=== PATIENT | female | born 1975 | race African-American/Black ===

== ENCOUNTER 2018-05-15 09:02 | Emergency (ER) | payer OTHER ==
[2018-05-15 09:14] VITALS: BMI 36.6
--- NOTE | 2018-05-15 09:58 | PDOC ---
History of Present Illness - General Chief Complaint: Chest Pain Stated Complaint: CHEST PAIN Time Seen by Provider: 05/15/18 09:23 History Source: Patient Exam Limitations: No Limitations - History of Present Illness Initial Comments: 05/15/18 09:41 43 yo F with a hx COPD presents to the emergency department with left chest pain that radiates to the left upper back ongoing for 3 days. Described as a throbbing pain, 10/10 severity, relieves with stretching and ibuprofen, lasts several minutes and terminates after drinking fluids. Of note, she said the quality changed yesterday as a tearing sensation in the middle of her chest. Denies traumatic inciting event and recent URI. Denies recent travels with prolonged sitting, hx of PE/DVT, use of hormones, recent surgeries, and recent immobilization. Per the patient, she has had intermittent SOB between chest pain episodes with a non productive cough. Denies the following: fevers, chills , nausea, vomiting, FND, abdominal pain, dysuria, hematuria, diarrhea, hematochezia, and leg pain/swelling. Shx: None Meds: albuterol, ibuprofen, iron Allergies: NKDA Social: 1/2 pack of tobacco. denies alcohol and substance abuse. 05/15/18 10:00 Past History - Past Medical History Allergies/Adverse Reactions: Allergies Allergy/AdvReac Type Severity Reaction Status Date / Time aspirin Allergy UNKNOWN Verified 05/15/18 09:09 Home Medications: Ambulatory Orders Albuterol Sulfate Inhaler - [Ventolin HFA Inhaler -] 2 inh PO Q4H PRN 04/03/13 Fluticasone Propionate [Flovent Diskus] 50 mcg IH DAILY 05/15/18 Anemia: Yes Asthma: No Cancer: No Cardiac Disorders: No CVA: No COPD: Yes (BRONCHITIS, BORDERLINE COPD) CHF: No Dementia: No Diabetes: No GI Disorders: No Disorders: No HTN: Yes Hypercholesterolemia: Yes Liver Disease: No Seizures: No Thyroid Disease: No - Surgical History Abdominal Surgery: No Appendectomy: No Cardiac Surgery: No Cholecystectomy: No Lung Surgery: No Neurologic Surgery: No Orthopedic Surgery: No - Immunization History Immunization Up to Date: Yes - Suicide/Smoking/Psychosocial Hx Smoking History: Current every day smoker Have you smoked in the past 12 months: Yes Number of Cigarettes Smoked Daily: 10 Information on smoking cessation initiated: No 'Breaking Loose' booklet given: 04/03/13 Hx Alcohol Use: No Drug/Substance Use Hx: No Substance Use Type: None Hx Substance Use Treatment: No Review of Systems - Review of Systems Able to Perform ROS?: Yes Is the patient limited Togolese proficient: No Constitutional: No: Chills, Diaphoresis, Fever, Weakness HEENTM: No: Blurred Vision, Recent change in vision, Ear Pain, Nose Pain, Throat Pain, Mouth Pain Respiratory: Yes: Shortness of Breath. No: Cough, Hemoptysis Cardiac (ROS): Yes: Chest Pain. No: Lightheadedness, Palpitations, Syncope, Chest Tightness ABD/GI: No: Constipated, Diarrhea, Nausea, Rectal Bleeding, Vomiting, Tarry Stools : No: Burning, Dysuria, Hematuria, Urgency Musculoskeletal: Yes: Back Pain. No: Joint Pain, Neck Pain Integumentary: No: Bruising, Erythema, Pruritus, Rash Neurological: No: Headache, Numbness, Tingling, Tremors, Ataxia, Dizziness Psychiatric: No: Change in Appetite Endocrine: No: Unexplained Weight Gain Hematologic/Lymphatic: No: Anemia *Physical Exam - Vital Signs Last Vital Signs Temp Pulse Resp BP Pulse Ox 98.4 F 117 H 17 114/74 99 05/15/18 09:09 05/15/18 09:09 05/15/18 09:09 05/15/18 09:09 05/15/18 09:09 - Physical Exam General Appearance: Yes: Nourished, Appropriately Dressed. No: Apparent Distress, Intoxicated HEENT: positive: EOMI, AURELIANO, Normal ENT Inspection, Normal Voice, Symmetrical, TMs Normal, Pharynx Normal, Hearing Grossly Normal. negative: Pale Conjunctivae , Scleral Icterus (R), Scleral Icterus (L), Muffled/Hoarse voice, Pharyngeal Erythema, Tonsillar Exudate, Tonsillar Erythema, Nasal Congestion, Rhinorrhea, Excessive drooling Neck: positive: Trachea midline, Supple. negative: Tender, Lymphadenopathy (R) , Lymphadenopathy (L), Tender lateral, Tender midline Respiratory/Chest: positive: Lungs Clear, Normal Breath Sounds. negative: Chest Tender, Respiratory Distress, Accessory Muscle Use, Crackles, Rales, Wheezing ( ) Cardiovascular: positive: Regular Rhythm, Regular Rate, S1, S2. negative: Systolic Murmur Gastrointestinal/Abdominal: positive: Normal Bowel Sounds, Flat, Soft. negative : Tender, Rebound, Tenderness Lymphatic: negative: Adenopathy Musculoskeletal: positive: Normal Inspection, Muscle Spasm (positive paravetebral tenderness with palpation on the left side. positive rhomboid tenderness left side. no midlien tenderness. ). negative: CVA Tenderness, Decreased Range of Motion Extremity: positive: Normal Capillary Refill, Normal Inspection, Normal Range of Motion. negative: Tender, Swelling, Calf Tenderness Integumentary: positive: Normal Color, Dry, Warm. negative: Rash, Swelling Neurologic: positive: tyre fitter II-XII NML intact, Fully Oriented, Alert, Normal Mood/ Affect, Normal Response, Motor Strength 5/5. negative: EOM Palsy, Facial Droop , Sensory Deficit Moderate Sedation - Procedure Monitoring Vital Signs: Procedure Monitoring Vital Signs Temperature 98.4 F 05/15/18 09:09 Pulse Rate 117 H 05/15/18 09:09 Respiratory Rate 17 05/15/18 09:09 Blood Pressure 114/74 05/15/18 09:09 O2 Sat by Pulse Oximetry (%) 99 05/15/18 09:09 Heart Score/ECG Review - ECG Intrepretation Comment:: ventricular rate 111 bpm, ME is 154 ms, QRS is 76 ms, QTc is 470 ms. Sinus tachycardia with PVC. No St ELEVATIONS OR DEPRESSIONS ED Treatment Course - LABORATORY CBC & Chemistry Diagram: 05/15/18 10:22 05/15/18 10:22 Medical Decision Making - Medical Decision Making 43 yo F with a hx COPD presents to the emergency department with left chest pain that radiates to the left upper back ongoing for 3 days. Initial vitals: Initial Vital Signs Temp Pulse Resp BP Pulse Ox 98.4 F 117 H 17 114/74 99 05/15/18 09:09 05/15/18 09:09 05/15/18 09:09 05/15/18 09:09 05/15/18 09:09 Work up: presents with atypical chest pain. ddx includes ACS, pericarditis vs pericardial effusion, PNA, pleuritis, vs PE vs muscle strain vs URI Laboratory Tests 05/15/18 05/15/18 05/15/18 10:22 10:22 10:22 WBC 4.7 RBC 4.67 Hgb 12.3 Hct 37.6 MCV 80.5 MCH 26.3 MCHC 32.7 RDW 17.5 H Plt Count 124 L MPV 10.1 D Absolute Neuts (auto) 2.0 Neutrophils % 43.3 Lymphocytes % 43.5 H Monocytes % 10.7 H Eosinophils % 1.7 Basophils % 0.8 Nucleated RBC % 0 D-Dimer 313 Sodium 142 Potassium 4.1 Chloride 107 Carbon Dioxide 26 Anion Gap 9 BUN 13 Creatinine 0.8 Creat Clearance w eGFR > 60 Random Glucose 101 Calcium 9.2 Total Bilirubin 0.3 AST 14 L ALT 24 Alkaline Phosphatase 92 Creatine Kinase 134 Troponin I < 0.02 B-Natriuretic Peptide 413.9 H Total Protein 7.1 Albumin 3.8 Serum , Qual 05/15/18 10:22 WBC RBC Hgb Hct MCV MCH MCHC RDW Plt Count MPV Absolute Neuts (auto) Neutrophils % Lymphocytes % Monocytes % Eosinophils % Basophils % Nucleated RBC % D-Dimer Sodium Potassium Chloride Carbon Dioxide Anion Gap BUN Creatinine Creat Clearance w eGFR Random Glucose Calcium Total Bilirubin AST ALT Alkaline Phosphatase Creatine Kinase Troponin I B-Natriuretic Peptide Total Protein Albumin Serum , Qual Negative Indeterminate range on BNP. negative troponins. d-dimer was negative. patient had a POCUS for cardiac. No pericardial effusions seen,. Normal wall motion without deficits. No D-sign appreciated on exam. no enlargement of the aortic root. lung exam showed no b lines. a lines present. no evidence of PTX seen. patient had significant improvement in pain symptoms after duoneb, motrin, and massage on the muscles tender on physical exam. her vitals normalized on reassessment. cxr was within normal limits. likely this is a muscular strain given history and physical with negative labs. gave the patient strict return precautions and she stated she would follow up with PMD. I discussed the physical exam findings, ancillary test results, and final diagnoses with the patient. I answered all of the patients questions to their satisfaction. The patient was satisfied with the care received and felt comfortable with the discussed discharge and treatment plan and accepted it. They agreed to follow up with their primary medical physical physician within 24 -72 hours after discharge for follow up care and management. Dispo: Discharge *DC/Admit/Observation/Transfer Diagnosis at time of Disposition: Muscle pain, Atypical chest pain - Discharge Dispostion Disposition: HOME Decision to Admit order: No - Referrals Referrals: Parag Choudhury MD [Primary Care Provider] - - Patient Instructions Printed Discharge Instructions: DI for Atypical Chest Pain, DI for Thoracic Back Pain Additional Instructions: you were seen for chest and back pain. xray was negative for pneumonia and other acute pathologies. your ultrasound showed a normal heart with no abnormalities. no abnormality was seen on the labs. please follow up with your primary medical doctor within 1 week after discharge for follow up care and management. please return to the emergency department for worsening symptoms or new concerning symptoms such as fevers, chills, new chest pain, and inability to breathe. thank you. - Post Discharge Activity Forms/Work/School Notes: Back to Work
[2018-05-15] MEDS ORDERED: IBUPROFEN 600 MG TABLET (FP) PO ONE ×2 (09:59→10:23)
[2018-05-15] MEDS ORDERED: ALBUTEROL SO4 2.5/IPRATROPIUM 0.5 INH SOL 3 ML VIAL.NEB. NEB ONE ×2 (09:59→10:22)
--- NOTE | 2018-05-15 10:24 | PDOC ---
Attending Attestation - Resident Resident Name: Roosevelt Pena - ED Attending Attestation I have performed the following: I have examined & evaluated the patient, The case was reviewed & discussed with the resident, I agree w/resident's findings & plan - HPI HPI: 05/15/18 10:52 43 YOF with h/o COPD not on O2, current smoker presenting with left chest pain, back pain, worse with movement. Improved with NSAID and stretching. No radiation of pain. +SOB, but unclear temporality or association. No n/v, no headache/dizziness, leg pain or swelling. Yesterday - tearing in center of chest No recent trauma or strenuous activity. No respiratory sx. - Physicial Exam PE: 05/15/18 10:52 NAD, well appearing, obese. PERRL, EOMI, MMM, nl conjunctiva, anicteric; neck supple. lungs clear, RRR, abdomen soft nontender. point tenderness to left sided paravertebral and rhomboid muscles; no midline back tenderness, normal inspection. SINGH x4, no focal neuro deficits. No peripheral edema. normal color for ethnicity, WWP. no calf tenderness. 05/15/18 11:35 - Medical Decision Making 05/15/18 10:52 See HPI for details Vital signs reviewed, initial tachy; no fever, normotensive and normal respirations/sats. Prior notes reviewed, including admissions, discharges and consultations. laboratory results and imaging reviewed, basic labs and lytes wnl Dimer neg, doubt PE or ao Dissection CXR_clear, no effusion or pneumonia; normal heart contours. Cardiac panel_neg trop EKG sinus tachycardia with some PVCs, no interval abnormalities, narrow QRS, ST and T wave segments and morphology normal. Nonspecific T wave abnormalities ED course: POCUS echo and thoracic exam wnl , no acute findings as documented. no e/o right heart strain or prox ao root dilation, normal EF and no effusions. A line profile without e/o pulmonary edema. repeat VS improved, reassuring. comfortable, pain controlled with ibuprofen and deep palpation and massage of the rhomboid and paraspinal thoracic muscles. Pt informed of my clinical impression, treatment recommendations and disposition plan. All questions answered to patient's satisfaction and expressed understanding and comfort with this. Reasons for returning to the ED sooner discussed with the patient otherwise, follow up with primary care physician. At the time of discharge, the patient is alert, clinically improved, tolerating po and verbalizes understanding of instructions. Patient does not suffer from an acute life-threatening medical condition at this time she is safe for outpatient follow-up. 05/15/18 11:34 Procedures - Bedside Ultrasound Bedside Ultrasound: Cardiac Remarks: 05/15/18 10:55 POCUS echo performed, indication includes chest pain/dyspnea. views obtained ( PSLA, PSS, A4, SX, IVC, bilateral lung blair). Findings include normal EF on visual estimation >55%, no pericardial or pleural effusion, primarily A lines, normal IVC with some collapse. Normal aortic root <4cm. RV<LV. Impression: no acute findings
[2018-05-15 10:32] LABS: BASO % 0.8 % (0-2.0); EOS % 1.7 % (0-4.5); HEMATOCRIT 37.6 % (32.4-45.2); HEMOGLOBIN 12.3 GM/dL (10.7-15.3); LYMPH % 43.5 % (8-40); MCH 26.3 pg (25.7-33.7); MCHC 32.7 g/dl (32.0-36.0); MEAN CELL VOLUME 80.5 fl (80-96); MEAN PLT VOLUME 10.1 fl (7.5-11.1); MONO % 10.7 % (3.8-10.2); NEUT % 43.3 % (42.8-82.8); PLATELET COUNT 124 K/MM3 (134-434); RBC 4.67 M/mm3 (3.60-5.2); RDW 17.5 % (11.6-15.6); WHITE BLOOD COUNT 4.7 K/mm3 (4.0-10.0)
[2018-05-15 11:01] LABS: ALBUMIN 3.8 g/dl (3.4-5.0); ALK PHOS 92 U/L (45-117); ANION GAP 9 MMOL/L (8-16); BILIRUBIN,TOTAL 0.3 mg/dL (0.2-1); BLOOD UREA NITROGEN 13 mg/dL (7-18); CALCIUM 9.2 mg/dL (8.5-10.1); CHLORIDE 107 mmol/L (98-107); CO2 26 mmol/L (21-32); CREATININE 0.8 mg/dL (0.55-1.3); GLUCOSE,RANDOM 101 mg/dL (74-106); N-TERMINAL BNP 413.9 pg/ml (5-125); POTASSIUM 4.1 mmol/L (3.5-5.1); SGOT/AST 14 U/L (15-37); SGPT/ALT 24 U/L (13-61); SODIUM 142 mmol/L (136-145); TOT PROT 7.1 g/dl (6.4-8.2)
[2018-05-15 11:04] VITALS: BP 145/97; PULSE 88; TEMP 98.2
--- NOTE | 2018-05-15 12:15 | EKG ---
Test Reason : Blood Pressure : / mmHG Vent. Rate : 111 BPM Atrial Rate : 111 BPM P-R Int : 154 ms QRS Dur : 076 ms QT Int : 346 ms P-R-T Axes : 058 051 046 degrees QTc Int : 470 ms SINUS TACHYCARDIA WITH FREQUENT PREMATURE VENTRICULAR COMPLEXES POSSIBLE LEFT ATRIAL ENLARGEMENT BORDERLINE ECG Confirmed by MD CHYNA, WALTER ([id number]) on 05/15/2018 12:15:06 PM Referred By: Confirmed By:WALTER CLEMENTE MD
== END 2018-05-15 12:13 | disposition home or self-care (01) ==
LOC: JER 09:02
PROC: 3E0F7GC Introduction of Other Therapeutic Substance into Respiratory Tract, Via Natural or Artificial Opening (ICD-10-PCS; principal; 2018-05-15)
PROC: B246ZZZ Ultrasonography of Right and Left Heart (ICD-10-PCS; 2018-05-15)
DX: R07.89 Other chest pain (principal); J44.9 Chronic obstructive pulmonary disease, unspecified; I10 Essential (primary) hypertension; D64.9 Anemia, unspecified; F17.210 Nicotine dependence, cigarettes, uncomplicated
CPT/HCPCS: 36415; 71046-TC-FY; 80053; 82550; 83880; 84484; 84703; 85025; 85379; 93005; 93010; 93307; 94640; 99285-25

== ENCOUNTER 2018-10-03 10:50 | Emergency (ER) | payer OTHER ==
[2018-10-03 11:04] VITALS: BMI 35.7
--- NOTE | 2018-10-03 11:56 | PDOC ---
History of Present Illness - General Chief Complaint: Shortness of Breath Stated Complaint: SHORTNESS OF BREATH Time Seen by Provider: 10/03/18 11:18 History Source: Patient Exam Limitations: No Limitations - History of Present Illness Initial Comments: 10/03/18 11:51 43 y/o F with PMHx of COPD (Not on Home O2), HTN, HLD, uterine fibroids presents with SOB. Patient says that this past monday, She began to feel SOB with exertion and lower abdominal pain with ambulation. She says the SOB came on all of a sudden while walking to work and has persisted since onset; It is not present at rest. Yesterday she noticed b/l lower extremity swelling and nausea. Today, She tried a "water pill" (Unknown name or dose) given to her by a coworker. Shortly after and prior to urinating, she felt faint and was prompted to visit the ED. Denies any associated Orthopnea. She has tried her prescribed Flovent, Albuterol inhaler, and nebulizer all of which provided minimal relief. Patient is employed as a entry level business analyst and mentions her daily trip lasts 3 hours. Denies any hormone replacement therapy, OCP use. Of note, she admits to seasonal allergy for which her PCP has recommended Sudafed PRN. Denies any recent changes in diet or increased Salt intake. Denies any recent trauma, sick contacts or recent medication changes. Denies any Fevers, chills, weakness, chest pain, SOB, nausea, vomiting, diarrhea , constipation, dysuria, visual changes, photophobia. PCP: Dr. Parag Serna PMHx: As above PSHx: Denies Allergies: ASA, Pollen Social: Current smoker since age 16, Occasional EtOH use, Denies Drug use FHx: Mother with DM Past History - Past Medical History Allergies/Adverse Reactions: Allergies Allergy/AdvReac Type Severity Reaction Status Date / Time aspirin Allergy UNKNOWN Verified 10/03/18 12:20 Home Medications: Ambulatory Orders Unobtainable 10/03/18 Anemia: Yes Asthma: No Cancer: No Cardiac Disorders: No CVA: No COPD: Yes (BRONCHITIS, BORDERLINE COPD) CHF: No Dementia: No Diabetes: No GI Disorders: No Disorders: No HTN: Yes Hypercholesterolemia: Yes Liver Disease: No Seizures: No Thyroid Disease: No - Surgical History Abdominal Surgery: No Appendectomy: No Cardiac Surgery: No Cholecystectomy: No Lung Surgery: No Neurologic Surgery: No Orthopedic Surgery: No - Immunization History Immunization Up to Date: Yes - Suicide/Smoking/Psychosocial Hx Smoking History: Current every day smoker Have you smoked in the past 12 months: Yes Number of Cigarettes Smoked Daily: 10 Information on smoking cessation initiated: No 'Breaking Loose' booklet given: 04/03/13 Hx Alcohol Use: No Drug/Substance Use Hx: No Substance Use Type: None Hx Substance Use Treatment: No Review of Systems - Review of Systems Constitutional: No: Chills, Fever HEENTM: No: Blurred Vision, Double Vision Respiratory: Yes: Cough, Shortness of Breath. No: Wheezing Cardiac (ROS): Yes: Chest Pain. No: Edema, Palpitations ABD/GI: Yes: Nausea. No: Constipated, Diarrhea, Vomiting : No: Dysuria Neurological: No: Numbness, Tingling *Physical Exam - Vital Signs Last Vital Signs Temp Pulse Resp BP Pulse Ox 98.4 F 114 H 16 108/74 98 10/03/18 11:01 10/03/18 11:01 10/03/18 11:01 10/03/18 11:01 10/03/18 11:01 - Physical Exam General Appearance: Yes: Nourished, Appropriately Dressed, Mild Distress, Obese HEENT: positive: EOMI, AURELIANO. negative: Pharyngeal Erythema, Tonsillar Exudate Neck: positive: Supple Respiratory/Chest: positive: Lungs Clear, Normal Breath Sounds. negative: Crackles, Rhonchi, Wheezing Cardiovascular: positive: S1, S2, Tachycardia. negative: Edema, JVD, Murmur Gastrointestinal/Abdominal: positive: Normal Bowel Sounds, Tender (To palpation in the suprapubic region). negative: Distended, Guarding, Rebound, Tenderness Musculoskeletal: negative: CVA Tenderness Extremity: positive: Swelling (1+ B/L Lower extremity) Neurologic: positive: sensitized paper tester II-XII NML intact, Fully Oriented, Alert ED Treatment Course - LABORATORY CBC & Chemistry Diagram: 10/03/18 12:01 10/03/18 12:01 Medical Decision Making - Medical Decision Making 10/03/18 12:02 43 y/o F with PMHx of COPD (Not on Home O2), HTN, HLD, uterine fibroids presents with SOB. Concern for PE. Less likely COPD Exacerbation, CHF, ACS. Tachycardia, otherwise VSS. EKG: Sinus tachycardia, LAE, VR 117, QTc 398 PERC score 1. Wells score 1.5--Check D-Dimer Will Check CBC, CMP, Cardiac profile, BNP, CXR Suprapubic tenderness to palpation--Check UA Check orthostatic VS given possible faint. Ongoing assessment 10/03/18 13:19 Laboratory Last Values WBC 6.5 K/mm3 (4.0-10.0) 10/03/18 12:01 RBC 4.26 M/mm3 (3.60-5.2) 10/03/18 12:01 Hgb 11.4 GM/dL (10.7-15.3) 10/03/18 12:01 Hct 35.4 % (32.4-45.2) 10/03/18 12:01 MCV 83.2 fl (80-96) 10/03/18 12:01 MCH 26.8 pg (25.7-33.7) 10/03/18 12:01 MCHC 32.2 g/dl (32.0-36.0) 10/03/18 12:01 RDW 17.4 % (11.6-15.6) H 10/03/18 12:01 Plt Count 190 K/MM3 (134-434) D 10/03/18 12:01 MPV 9.5 fl (7.5-11.1) 10/03/18 12:01 Absolute Neuts (auto) 3.3 K/mm3 (1.5-8.0) 10/03/18 12:01 Neutrophils % 50.4 % (42.8-82.8) 10/03/18 12:01 Lymphocytes % 39.6 % (8-40) 10/03/18 12:01 Monocytes % 8.8 % (3.8-10.2) 10/03/18 12:01 Eosinophils % 0.8 % (0-4.5) 10/03/18 12:01 Basophils % 0.4 % (0-2.0) 10/03/18 12:01 Nucleated RBC % 0 % (0-0) 10/03/18 12:01 D-Dimer 1592 ng/ml (0-500) H 10/03/18 12:01 Sodium 142 mmol/L (136-145) 10/03/18 12:01 Potassium 4.4 mmol/L (3.5-5.1) 10/03/18 12:01 Chloride 109 mmol/L (98-107) H 10/03/18 12:01 Carbon Dioxide 28 mmol/L (21-32) 10/03/18 12:01 Anion Gap 6 MMOL/L (8-16) L 10/03/18 12:01 BUN 8.3 mg/dL (7-18) 10/03/18 12:01 Creatinine 0.8 mg/dL (0.55-1.3) 10/03/18 12:01 Est GFR (CKD-EPI)AfAm 105.39 10/03/18 12:01 Est GFR (CKD-EPI)NonAf 90.93 10/03/18 12:01 Random Glucose 107 mg/dL (74-106) H 10/03/18 12:01 Calcium 8.6 mg/dL (8.5-10.1) 10/03/18 12:01 Phosphorus 3.4 mg/dL (2.5-4.9) 10/03/18 12:01 Magnesium 1.9 mg/dL (1.8-2.4) 10/03/18 12:01 Total Bilirubin 0.5 mg/dL (0.2-1) 10/03/18 12:01 AST 68 U/L (15-37) H 10/03/18 12:01 ALT 107 U/L (13-61) H 10/03/18 12:01 Alkaline Phosphatase 92 U/L (45-117) 10/03/18 12:01 Creatine Kinase 196 U/L (26-192) H 10/03/18 12:01 Troponin I 0.04 ng/ml (0.00-0.05) 10/03/18 12:01 B-Natriuretic Peptide 3130.3 pg/ml (5-125) H 10/03/18 12:01 Total Protein 6.1 g/dl (6.4-8.2) L 10/03/18 12:01 Albumin 3.4 g/dl (3.4-5.0) 10/03/18 12:01 Urine Color Yellow 10/03/18 12:01 Urine Appearance Clear 10/03/18 12:01 Urine pH 6.0 (5.0-8.0) 10/03/18 12:01 Ur Specific [place] 1.008 (1.010-1.035) L 10/03/18 12:01 Urine Protein Negative (NEGATIVE) 10/03/18 12:01 Urine Glucose (UA) Negative (NEGATIVE) 10/03/18 12:01 Urine Ketones Negative (NEGATIVE) 10/03/18 12:01 Urine Blood 3+ (NEGATIVE) H 10/03/18 12:01 Urine Nitrite Negative (NEGATIVE) 10/03/18 12:01 Urine Bilirubin Negative (NEGATIVE) 10/03/18 12:01 Urine Urobilinogen 0.2 mg/dL (0.2-1.0) 10/03/18 12:01 Ur Leukocyte Esterase Negative (NEGATIVE) 10/03/18 12:01 Urine WBC (Auto) 2 /hpf (0-5) 10/03/18 12:01 Urine RBC (Auto) 1 /hpf (0-4) 10/03/18 12:01 Urine Casts (Auto) 0 /lpf (0-8) 10/03/18 12:01 U Epithel Cells (Auto) 1.9 /HPF (0-5/HPF) 10/03/18 12:01 Urine Bacteria (Auto) 93.8 /hpf (NEGATIVE) 10/03/18 12:01 Urine HCG, Qual Negative 10/03/18 12:01 Labwork noted above significant for elevated D-Dimer and BNP. Will check CTA. 10/03/18 17:02 CTA: No CT evidence of acute or chronic pulmonary embolism. The main pulmonary diameter appears mildly dilated suggestive of possible pulmonary hypertension. Probable cardiomegaly. There is equivocal minimal to mild interstitial pulmonary vascular congestion. Very small pericardial effusion. A 1 cm slightly thick-walled right upper lobe subpleural cyst/bulla is noted which is probably post infectious/post inflammatory in nature correlation with 3 month follow-up CT is suggested to document stability and lack of developing pathology (unless prior CT studies are available from a different facility for direct comparison) . A 2 cm left adrenal nodule is noted which is nonspecific on the basis of this exam although likely representing an adenoma on a statistical basis. Biochemical evaluation is suggested. Additional evaluation utilizing dedicated adrenal CT (without and with contrast) is suggested versus correlation with 3 month follow-up noncontrast CT to evaluate stability. There is bilateral flank subcutaneous edema at the level of the partially imaged upper abdomen. 10/03/18 17:10 Patient was advised she will likely need admission however she is refusing admission. Discussed case with Dr. Curz who suggest outpatient Pulmonary and cardio follow up to treat underlying Pulmonary HTN. Patient would like to leave AMA. Results discussed in detail. Return precautons given. *DC/Admit/Observation/Transfer Diagnosis at time of Disposition: Pulmonary hypertension - Discharge Dispostion Disposition: AGAINST MEDICAL ADVICE Condition at time of disposition: Guarded Decision to Admit order: No - Referrals Referrals: Parag Choudhury MD [Primary Care Provider] - Per Cruz MD, MD [Staff Physician] - Danny Martinez MD [Staff Physician] - - Patient Instructions Printed Discharge Instructions: DI for Pulmonary Arterial Hypertension-Adult Additional Instructions: You presented to the ER with shortness of breath. A Cat scan was suggestive of Pulmonary hypertension. We discussed admitting you for further workup however you refused, and wanted to leave against medical advice. Please follow up with your PCP, Pulmonary (Dr. Cruz) and Cardiology (Dr. Martinez) as you will need further work up--Please call and make an appointment, Your work up is not complete until you do so. Continue all your other medications as prescribed. If you are able to settle your affairs outpatient, please return to the ED as it is STRONGLY SUGGESTED YOU BE ADMITTED for further workup. Please return to the ER if you have any signs or symptoms of chest pain, shortness of breath, fever, uncontrollable pain, chills, nausea, vomiting, numbness, tingling, or weakness in any part of your body, changes in vision or slurred speech. Please return to the ER if symptoms persist, worsen, or new symptoms arise. Print Language: MACEDONIAN - Post Discharge Activity
[2018-10-03 12:25] LABS: EPI CELLS 1.9 /HPF (0-5/HPF); HYALINE CASTS 0 /lpf (0-8); URINE APPEARANCE CLEAR; URINE BACTERIA 93.8 /hpf (NEGATIVE); URINE BILIRUBIN NEGATIVE (NEGATIVE); URINE COLOR YELLOW; URINE GLUCOSE (UA) NEGATIVE (NEGATIVE); URINE KETONE NEGATIVE (NEGATIVE); URINE LEUK ESTERASE NEGATIVE (NEGATIVE); URINE NITRITE NEGATIVE (NEGATIVE); URINE PROTEIN NEGATIVE (NEGATIVE); URINE RBC 1 /hpf (0-4); URINE UROBILINOGEN 0.2 mg/dL (0.2-1.0); URINE WBC 2 /hpf (0-5)
[2018-10-03 12:36] LABS: BASO % 0.4 % (0-2.0); EOS % 0.8 % (0-4.5); HEMATOCRIT 35.4 % (32.4-45.2); HEMOGLOBIN 11.4 GM/dL (10.7-15.3); LYMPH % 39.6 % (8-40); MCH 26.8 pg (25.7-33.7); MCHC 32.2 g/dl (32.0-36.0); MEAN CELL VOLUME 83.2 fl (80-96); MEAN PLT VOLUME 9.5 fl (7.5-11.1); MONO % 8.8 % (3.8-10.2); NEUT % 50.4 % (42.8-82.8); PLATELET COUNT 190 K/MM3 (134-434); RBC 4.26 M/mm3 (3.60-5.2); RDW 17.4 % (11.6-15.6); WHITE BLOOD COUNT 6.5 K/mm3 (4.0-10.0)
--- NOTE | 2018-10-03 12:40 | PDOC ---
Documentation entered by Rebekah Owens SCRIBE, acting as scribe for Mack Davis MD. Mack Davis MD: This documentation has been prepared by the yongibe, Rebekah Owens SCRIBE, under my direction and personally reviewed by me in its entirety. I confirm that the documentation accurately reflects all work, treatment, procedures, and medical decision making performed by me. 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 Pt endorses dyspnea on exertion but denies SOB at rest. Denies orthopnea. The patient has tried flovent, her albuterol pump, and nebulizer with no relief of her symptoms. She endorses swelling in both lower extremities. Denies calf pain. Denies F/C. Pt states that a co-worker gave her a water pill that she took today, but she states it made her dizzy. She denies any head trauma or loss of consciousness. Patient also endorses a productive cough. The patient denies fevers, chills, nausea, vomiting, diarrhea, or abdominal pain. Denies any chest pain or palpitations. Denies any weakness or changes in strength or sensation. Allergies: Aspirin - Physicial Exam PE: 10/03/18 12:00 GENERAL: Awake, alert, and fully oriented, in no acute distress. HEAD: No signs of trauma EYES: PERRLA, EOMI, sclera anicteric, conjunctiva clear ENT: Auricles normal inspection, hearing grossly normal, nares patent, oropharynx clear without exudates. Moist mucosa NECK: Nontender, no stepoffs, Normal ROM, supple, no lymphadenopathy, JVD, or masses LUNGS: Breath sounds equal, clear to auscultation bilaterally. No wheezes, and no crackles HEART: Regular rate and rhythm, normal S1 and S2, no murmurs, rubs or gallops ABDOMEN: Soft, nontender, normoactive bowel sounds. No guarding, no rebound. No masses EXTREMITIES: +1 PE BLE. No clubbing or cyanosis. No cords, erythema, or tenderness NEUROLOGICAL: Cranial nerves II through XII intact. 5/5 strength and sensation in all extremities, Normal speech, normal cerebellar function SKIN: Warm, Dry, normal turgor, no rashes or lesions noted. - Medical Decision Making 10/03/18 12:38 43 F with CALDERON and cough, as well as BLE edema. Will need PE r/o, as pt is business quality assurance analyst. Pt also tachycardic in ED. Will need cardiac evaluation as well, as EKG shows Q waves anteriorly. - Labs, trop, BNP, ddimer - CXR - CTA if indicated 10/03/18 16:39 Labs with elevated Ddimer, BNP CTA shows no PE, but suggestive of pHTN 10/03/18 17:15 Pt refusing admission to hospital, stating that she needs to take care of her kid at home. The patient is clinically sober, free from distracting injury, appears to have intact insight and judgment and reason and in my opinion has the capacity to make decisions. The patient presented with SOB. I have explained that I am concerned that this may represent pulmonary HTN; they have verbalized an understanding of my concerns. I have discussed the need for pulmonary and cardiology consultation and admission to the hospital to get more information about potential causes of the patients SOB. I have told the patient that if they leave and have chest pain or shortness of breath, they could get much worse , could become critically ill, and could possibly become disabled or . I have asked them to stay in the hospital for monitoring and further testing. She is unwilling to stay overnight for monitoring. She is refusing any further care and is leaving against medical advice. I am unable to convince the patient to stay, I have asked them to return as soon as possible to complete their evaluation. I have answered all their questions.
[2018-10-03 12:57] LABS: HCG,QUALITATIVE URINE Negative
[2018-10-03 13:08] LABS: ALBUMIN 3.4 g/dl (3.4-5.0); BILIRUBIN,TOTAL 0.5 mg/dL (0.2-1); BLOOD UREA NITROGEN 8.3 mg/dL (7-18); CALCIUM 8.6 mg/dL (8.5-10.1); CREATININE 0.8 mg/dL (0.55-1.3); MAGNESIUM 1.9 mg/dL (1.8-2.4); N-TERMINAL BNP 3130.3 pg/ml (5-125); PHOSPHOROUS 3.4 mg/dL (2.5-4.9); POTASSIUM 4.4 mmol/L (3.5-5.1); TOT PROT 6.1 g/dl (6.4-8.2)
[2018-10-03 17:27] VITALS: BP 137/98; PULSE 119; TEMP 98.2
--- NOTE | 2018-10-04 16:31 | EKG ---
Test Reason : Blood Pressure : / mmHG Vent. Rate : 121 BPM Atrial Rate : 121 BPM P-R Int : 170 ms QRS Dur : 088 ms QT Int : 282 ms P-R-T Axes : 048 037 050 degrees QTc Int : 400 ms SINUS TACHYCARDIA WITH FUSION COMPLEXES POSSIBLE LEFT ATRIAL ENLARGEMENT POSSIBLE ANTERIOR INFARCT (CITED ON OR BEFORE 03-OCT-2018) ABNORMAL ECG WHEN COMPARED WITH ECG OF 03-OCT-2018 10:47, FUSION COMPLEXES ARE NOW PRESENT Confirmed by GUALBERTO TERESA MD ([id number]) on 10/04/2018 4:30:27 PM Referred By: Confirmed By:GUALBERTO TERESA MD
== END 2018-10-03 17:51 | disposition left against medical advice (07) ==
LOC: JER 10:50
DX: I27.20 Pulmonary hypertension, unspecified (principal); F17.210 Nicotine dependence, cigarettes, uncomplicated; E78.00 Pure hypercholesterolemia, unspecified; I10 Essential (primary) hypertension; J44.9 Chronic obstructive pulmonary disease, unspecified; E78.5 Hyperlipidemia, unspecified
CPT/HCPCS: 36415; 71275-TC; 80053; 81003; 82550; 82553; 83735; 83880; 84100; 84484; 84703; 85025; 85379; 93005; 93010; 99284-25

== ENCOUNTER 2018-10-04 10:07 | Inpatient (IN) | payer OTHER ==
--- NOTE | 2018-10-04 10:31 | PDOC ---
History of Present Illness - General Stated Complaint: CHEST PAIN Time Seen by Provider: 10/04/18 10:31 - History of Present Illness Initial Comments: 10/04/18 10:47 Ms. Sears is a 43 yo female w/ pmh of COPD, HTN, HLD, uterine fibroids who presents for evalution of SOB since last Monday that was sudden in onset and has persisted; not present at rest. Patient has also noted SARWAT lower extremity swelling. Of note, patient presented to this ED yesterday after she took an unknown "water pill" and felt feight. Patient was found to have elevated BNP and D-dimer. Patient was evaluated with CTA yesterday and found to have small pericardial effusion w/out evidence of PE. Patient was recommended for admission yesterday however elected to leave AMA as she had personal business. Returns today for further care. Past History - Past Medical History Allergies/Adverse Reactions: Allergies Allergy/AdvReac Type Severity Reaction Status Date / Time aspirin Allergy UNKNOWN Verified 10/04/18 10:35 Home Medications: Ambulatory Orders Albuterol Sulfate Inhaler - [Ventolin Hfa Inhaler -] 1 - 2 inh PO Q4H PRN Cetirizine HCl [Zyrtec -] 10 mg PO DAILY 10/04/18 Fluticasone Propionate [Flovent Diskus] 50 mcg IH PRN 10/04/18 Anemia: Yes Asthma: No Cancer: No Cardiac Disorders: No CVA: No COPD: Yes (BRONCHITIS, BORDERLINE COPD) CHF: No Dementia: No Diabetes: No GI Disorders: No Disorders: No HTN: Yes Hypercholesterolemia: Yes Liver Disease: No Seizures: No Thyroid Disease: No - Surgical History Abdominal Surgery: No Appendectomy: No Cardiac Surgery: No Cholecystectomy: No Lung Surgery: No Neurologic Surgery: No Orthopedic Surgery: No - Immunization History Immunization Up to Date: Yes - Suicide/Smoking/Psychosocial Hx Smoking History: Current every day smoker Have you smoked in the past 12 months: Yes Number of Cigarettes Smoked Daily: 10 'Breaking Loose' booklet given: 04/03/13 Hx Alcohol Use: No Drug/Substance Use Hx: No Substance Use Type: None Hx Substance Use Treatment: No Review of Systems - Review of Systems Comments:: 10/04/18 11:43 GENERAL/CONSTITUTIONAL: No fever or chills. No weakness. HEAD, EYES, EARS, NOSE AND THROAT: No change in vision. No ear pain or discharge. No sore throat. CARDIOVASCULAR: +SOB as described. Previous episode of feeling feint. RESPIRATORY: No cough, wheezing, or hemoptysis. GASTROINTESTINAL: No nausea, vomiting, diarrhea or constipation. GENITOURINARY: No dysuria, frequency, or change in urination. MUSCULOSKELETAL: No joint or muscle swelling or pain. No neck or back pain. SKIN: No rash NEUROLOGIC: No headache, vertigo, loss of consciousness, or change in strength/ sensation. ENDOCRINE: No increased thirst. No abnormal weight change HEMATOLOGIC/LYMPHATIC: No anemia, easy bleeding, or history of blood clots. ALLERGIC/IMMUNOLOGIC: No hives or skin allergy. *Physical Exam - Physical Exam Comments: GENERAL: +Patient morbidly obese. Awake, alert, and fully oriented, in no acute distress HEAD: No signs of trauma, normocephalic, atraumatic EYES: PERRLA, EOMI, sclera anicteric, conjunctiva clear ENT: Auricles normal inspection, hearing grossly normal, nares patent, oropharynx clear without exudates. Moist mucosa NECK: Normal ROM, supple, no lymphadenopathy, JVD, or masses LUNGS: +Diffuse coarse lung sounds appreciated. No distress, speaks full sentences HEART: Regular rate and rhythm, normal S1 and S2, no murmurs, rubs or gallops, peripheral pulses normal and equal bilaterally. ABDOMEN: Soft, nontender, normoactive bowel sounds. No guarding, no rebound. No masses EXTREMITIES: +1+ Pedal edema sarwat. Otherwise normal inspection, Normal range of motion. No clubbing or cyanosis. NEUROLOGICAL: Cranial nerves II through XII grossly intact. Normal speech, normal gait, no focal sensorimotor deficits SKIN: Warm, Dry, normal turgor, no rashes or lesions noted. ED Treatment Course - LABORATORY CBC & Chemistry Diagram: 10/04/18 11:05 10/04/18 11:09 Medical Decision Making - Medical Decision Making 10/04/18 11:56 Ms. Sears is a 43 yo female w/ pmh as described who re-presents for evaluation of shortness of breath. Given patient's CTA yesterday (negative), decision made to forgo testing for PE at this time. Patient evaluated with cardiac labs as below concerning for hypervolemia. Patient CXR suspicious for fluid overload. EKG significant for sinus tach only. Patient will be admitted for cardiac consultation and diuresis. 10/04/18 13:02 Patient BNP increased from yesterday as below. Laboratory Results - last 24 hr 10/04/18 10/04/18 11:05 11:09 WBC 6.5 RBC 4.17 Hgb 11.2 Hct 34.3 MCV 82.4 MCH 26.9 MCHC 32.7 RDW 16.9 H Plt Count 191 MPV 9.5 Absolute Neuts (auto) 3.2 Neutrophils % 48.7 Lymphocytes % 40.7 H Monocytes % 8.5 Eosinophils % 1.3 Basophils % 0.8 Nucleated RBC % 0 Sodium 143 Potassium 3.7 Chloride 110 H Carbon Dioxide 27 Anion Gap 6 L BUN 9.3 Creatinine 0.9 Est GFR (CKD-EPI)AfAm 91.40 Est GFR (CKD-EPI)NonAf 78.86 Random Glucose 142 H Calcium 8.9 Total Bilirubin 0.5 AST 82 H ALT 128 H Alkaline Phosphatase 90 Creatine Kinase 149 Troponin I 0.04 B-Natriuretic Peptide 5136.5 H Total Protein 6.0 L Albumin 3.4 *DC/Admit/Observation/Transfer Diagnosis at time of Disposition: COPD exacerbation, Tachycardia Hypervolemia Qualifiers: Hypervolemia type: unspecified Qualified Code(s): E87.70 - Fluid overload, unspecified - Discharge Dispostion Decision to Admit order: Yes - Referrals Referrals: Parag Choudhury MD [Primary Care Provider] - - Patient Instructions - Post Discharge Activity
[2018-10-04 10:35] VITALS: BMI 28.2
--- NOTE | 2018-10-04 11:03 | PDOC ---
Attending Attestation - Resident Resident Name: oBn Barrett - ED Attending Attestation I have performed the following: I have examined & evaluated the patient, The case was reviewed & discussed with the resident, I agree w/resident's findings & plan, Exceptions are as noted - HPI HPI: 10/04/18 11:00 Ms. Sears is a 43 yo female w/ pmh of COPD, HTN, HLD, uterine fibroids who presents for evaluation of SOB x She was seen in the ER yesterday where work up revealed elevated D dimer CTA performed and revealed No CT evidence of acute or chronic pulmonary embolism. Possible Pulmonary hypertension, minimal to mild interstitial pulmonary vascular congestion. A 1 cm slightly thick-walled right upper lobe subpleural cyst/bulla Bilateral flank subcutaneous edema at the level of the partially imaged upper abdomen. Patient advised to stay in the hospital but was unable to do this and left AMA Pt states she remains short of breath Denies chest pain but reports that chest pain occurred 3 days ago No cough no sputum 10/04/18 12:30 - Physicial Exam PE: 10/04/18 10:58 GENERAL: The patient is in no acute distress. ENT: Ears normal, nares patent, oropharynx clear without exudates. Moist mucous membranes. NECK: Normal range of motion, supple LUNGS: Breath sounds equal, clear to auscultation bilaterally. No wheezes, and no crackles. HEART: Tachycardiac, Regular rhythm, normal S1 and S2 without murmur, rub or gallop. ABDOMEN: Soft, nontender, normoactive bowel sounds. EXTREMITIES: Normal range of motion, no edema. NEUROLOGICAL: Cranial nerves II through XII grossly intact. Normal speech. No focal neurological deficits. SKIN: Warm, Dry, normal turgor, no rashes or lesions noted. 10/04/18 12:31 - Medical Decision Making 10/04/18 12:31 Will repeat labs Will monitor on environmental monitoring technician Pt remains tachycardiac EKG - Sinus tachycardia rate of 121 bpm, axis nml, intervals nml, no st elevation or depression, t wave flattening 10/04/18 12:32 Laboratory Tests 10/04/18 10/04/18 11:05 11:09 WBC 6.5 Hgb 11.2 Hct 34.3 Plt Count 191 BUN 9.3 Creatinine 0.9 Creatine Kinase 149 Troponin I 0.04 B-Natriuretic Peptide 5136.5 H CHF Pulmonary hypertension (based on CT) Admit to hospitalist Treat with Lasix
[2018-10-04] MEDS ORDERED: ALBUTEROL SO4 2.5/IPRATROPIUM 0.5 INH SOL 3 ML VIAL.NEB. NEB ONE (11:09)
[2018-10-04 11:22] LABS: BASO % 0.8 % (0-2.0); EOS % 1.3 % (0-4.5); HEMATOCRIT 34.3 % (32.4-45.2); HEMOGLOBIN 11.2 GM/dL (10.7-15.3); LYMPH % 40.7 % (8-40); MCH 26.9 pg (25.7-33.7); MCHC 32.7 g/dl (32.0-36.0); MEAN CELL VOLUME 82.4 fl (80-96); MEAN PLT VOLUME 9.5 fl (7.5-11.1); MONO % 8.5 % (3.8-10.2); NEUT % 48.7 % (42.8-82.8); PLATELET COUNT 191 K/MM3 (134-434); RBC 4.17 M/mm3 (3.60-5.2); RDW 16.9 % (11.6-15.6); WHITE BLOOD COUNT 6.5 K/mm3 (4.0-10.0)
[2018-10-04 11:58] LABS: ALBUMIN 3.4 g/dl (3.4-5.0); BILIRUBIN,TOTAL 0.5 mg/dL (0.2-1); BLOOD UREA NITROGEN 9.3 mg/dL (7-18); CALCIUM 8.9 mg/dL (8.5-10.1); CREATININE 0.9 mg/dL (0.55-1.3); N-TERMINAL BNP 5136.5 pg/ml (5-125); POTASSIUM 3.7 mmol/L (3.5-5.1)
[2018-10-04] MEDS ORDERED: FUROSEMIDE 40 MG/4 ML INJECTABLE VIAL IVPUSH ONE (13:35)
[2018-10-04] MEDS ORDERED: ONDANSETRON 4 MG/2 ML VIAL IVPUSH PRN (13:36)
[2018-10-04] MEDS ORDERED: ACETAMINOPHEN 325 MG TABLET (FP) PO PRN (13:36)
--- NOTE | 2018-10-04 13:44 | HP ---
Admitting History and Physical - Primary Care Physician PCP: Parag Choudhury - Admission Chief Complaint: I had chest pain History of Present Illness: Ms Sears is a 43 year old female who comes in with complaint of chest pain and shortness of breath. She says it began on Monday with right sided chest pain. She says the pain was sharp and did not last long, so she was not concerned about it. However Monday she began to develop shortness of breath. She says that it was mainly dyspnea on exertion but she could not walk far. It was also made worse by lying flat. She noticed swelling of both her legs with this as well. She presented yesterday to the ED, at that time she was recommended for admission but left AMA. She went home and took a friend's diuretic medication and she says this helped the swelling. The dyspnea remained the same though. Today she began to develop left sided chest pain. She says the pain is stabbing, 8/10, slightly worsens with deep breathing. It does not radiate. She also feels palpitations with this as well. She denies fevers, chills, lightheadedness, dizziness, coughing, abdominal pain, nausea, vomiting, diarrhea, constipation, or difficulty or pain on urination. History Source: Patient Limitations to Obtaining History: No Limitations - Past Medical History Pulmonary: Yes: COPD ...LMP: 03/21/13 Heme/Onc: Yes: Anemia - Past Surgical History Past Surgical History: Yes: None - Smoking History Smoking history: Current every day smoker Have you smoked in the past 12 months: Yes Aproximately how many cigarettes per day: 10 - Alcohol/Substance Use Hx Alcohol Use: No History of Substance Use: reports: None - Social History ADL: Independent History of Recent Travel: No Home Medications - Allergies Allergies/Adverse Reactions: Allergies Allergy/AdvReac Type Severity Reaction Status Date / Time aspirin Allergy UNKNOWN Verified 10/04/18 10:35 - Home Medications Home Medications: Ambulatory Orders Albuterol Sulfate Inhaler - [Ventolin Hfa Inhaler -] 1 - 2 inh PO Q4H PRN Cetirizine HCl [Zyrtec -] 10 mg PO DAILY 10/04/18 Fluticasone Propionate [Flovent Diskus] 50 mcg IH PRN 10/04/18 Family Disease History - Family Disease History Family Disease History: Diabetes: Mother Review of Systems Findings/Remarks: Full review of systems obtained, as per HPI and otherwise negative Physical Examination Vital Signs: Vital Signs Temperature 36.7 C 10/04/18 10:32 Pulse Rate 121 H 10/04/18 10:32 Respiratory Rate 18 10/04/18 10:32 Blood Pressure 109/70 10/04/18 10:32 O2 Sat by Pulse Oximetry (%) 100 10/04/18 10:32 Constitutional: Yes: Well Nourished, No Distress, Calm Eyes: Yes: Conjunctiva Clear, EOM Intact, PERRL HENT: Yes: Atraumatic, Normocephalic Cardiovascular: Yes: Regular Rate and Rhythm. No: Gallop, Murmur, Rub Respiratory: Yes: Regular, CTA Bilaterally. No: Rales, Rhonchi, Wheezes Gastrointestinal: Yes: Normal Bowel Sounds, Soft. No: Distention, Tenderness Extremities: Yes: WNL Edema: Yes Edema: LLE: Trace, RLE: Trace Labs: CBC, BMP 10/04/18 11:05 10/04/18 11:09 Imaging - Results Chest X-ray: Report Reviewed, Image Reviewed Problem List - Problems (1) CHF (congestive heart failure) Code(s): I50.9 - HEART FAILURE, UNSPECIFIED (2) COPD exacerbation Code(s): J44.1 - CHRONIC OBSTRUCTIVE PULMONARY DISEASE W (ACUTE) EXACERBATION Assessment/Plan -presentation is suspicious for new onset CHF -admit to telemetry -cardiac enzymes x3 -lasix 40mg IV daily -low dose lisinopril -check ECHO -check lipid panel -check TFTs -cardiology consult
[2018-10-04] MEDS ORDERED: FUROSEMIDE 40 MG/4 ML INJECTABLE VIAL ONE (15:40)
--- NOTE | 2018-10-04 16:52 | CON.CARD ---
Consult Consult Specialty:: Cardiology Referred by:: Medicine Reason for Consultation:: CHF - History of Present Illness Chief Complaint: shortness of breath History of Present Illness: 43F h/o COPD, HTN, HLD p/w shortness of breath. Came to ER yestrday, CTA chest showed congestion, no PE, possible pulm HTN. Left AMA yesterday. Back today with shortness of breath. Improved with IV lasix. No edema, palps, dizziness. - Past Medical History ...LMP: 03/21/13 - Alcohol/Substance Use Hx Alcohol Use: No - Smoking History Smoking history: Current every day smoker Have you smoked in the past 12 months: Yes Aproximately how many cigarettes per day: 10 Home Medications - Allergies Allergies/Adverse Reactions: Allergies Allergy/AdvReac Type Severity Reaction Status Date / Time aspirin Allergy UNKNOWN Verified 10/04/18 10:35 - Home Medications Home Medications: Ambulatory Orders Albuterol Sulfate Inhaler - [Ventolin Hfa Inhaler -] 1 - 2 inh PO Q4H PRN Cetirizine HCl [Zyrtec -] 10 mg PO DAILY 10/04/18 Fluticasone Propionate [Flovent Diskus] 50 mcg IH PRN 10/04/18 Family Disease History - Family Disease History Family History: Unremarkable Review of Systems - Review of Systems Constitutional: reports: No Symptoms Eyes: reports: No Symptoms HENT: reports: No Symptoms Neck: reports: No Symptoms Cardiovascular: reports: No Symptoms Respiratory: reports: No Symptoms Gastrointestinal: reports: No Symptoms Genitourinary: reports: No Symptoms Musculoskeletal: reports: No Symptoms Integumentary: reports: No Symptoms Neurological: reports: No Symptoms Endocrine: reports: No Symptoms Hematology/Lymphatic: reports: No Symptoms Psychiatric: reports: No Symptoms Vital Signs: Vital Signs Temperature 98.0 F 10/04/18 10:32 Pulse Rate 121 H 10/04/18 10:32 Respiratory Rate 18 10/04/18 10:32 Blood Pressure 109/70 10/04/18 10:32 O2 Sat by Pulse Oximetry (%) 100 10/04/18 10:32 Constitutional: Yes: Well Nourished, No Distress, Calm Eyes: Yes: Conjunctiva Clear, EOM Intact HENT: Yes: Atraumatic, Normocephalic Neck: Yes: Supple, Trachea Midline Respiratory: Yes: Regular, Rales Gastrointestinal: Yes: Normal Bowel Sounds, Soft Cardiovascular: Yes: Regular Rate and Rhythm, Tachycardia JVD: No PMI: Non-Displaced Heart Sounds: Yes: S1, S2 Musculoskeletal: No: Back Pain Extremities: No: Cold - Other Data Labs, Other Data: CBC, BMP 10/04/18 11:05 10/04/18 11:09 Troponin, BNP 10/04/18 11:09 Troponin I 0.04 B-Natriuretic Peptide 5136.5 H Troponin, BNP 10/04/18 11:09 Troponin I 0.04 B-Natriuretic Peptide 5136.5 H Assessment/Plan EKG sinus tach, PVCs CTA chest no PE, main PA mildly dilated, probable cardiomegaly, very small pericardial effusion, interstitial pulm vascular congestion mild Acute CHF exac, pulm HTN - check echo - continue IV lasix - monitor daily weights, Cr, lytes HTN - cont lisinopril HLD - not on statin, check lipids
[2018-10-05] MEDS ORDERED: ACETAMINOPHEN 325 MG TABLET (FP) ONE (02:25)
[2018-10-05 06:09] LABS: BASO % 0.5 % (0-2.0); EOS % 1.9 % (0-4.5); HEMATOCRIT 34.8 % (32.4-45.2); HEMOGLOBIN 11.3 GM/dL (10.7-15.3); LYMPH % 45.8 % (8-40); MCH 26.9 pg (25.7-33.7); MCHC 32.5 g/dl (32.0-36.0); MEAN CELL VOLUME 82.6 fl (80-96); MEAN PLT VOLUME 9.3 fl (7.5-11.1); MONO % 10.4 % (3.8-10.2); NEUT % 41.4 % (42.8-82.8); PLATELET COUNT 172 K/MM3 (134-434); RBC 4.21 M/mm3 (3.60-5.2); RDW 16.9 % (11.6-15.6); WHITE BLOOD COUNT 5.6 K/mm3 (4.0-10.0)
[2018-10-05 06:58] LABS: BLOOD UREA NITROGEN 10.2 mg/dL (7-18); CALCIUM 8.8 mg/dL (8.5-10.1); CREATININE 0.8 mg/dL (0.55-1.3); MAGNESIUM 1.8 mg/dL (1.8-2.4); PHOSPHOROUS 4.1 mg/dL (2.5-4.9); POTASSIUM 3.7 mmol/L (3.5-5.1)
--- NOTE | 2018-10-05 08:32 | PN ---
Progress Note, Physician Chief Complaint: Ms Sears says she is feeling better and is now without complaint. No cp, sob, n/v. - Current Medication List Current Medications: Active Medications Acetaminophen (Tylenol -) 650 mg PO Q4H PRN PRN Reason: FEVER Last Admin: 10/05/18 02:28 Dose: 650 mg Furosemide (Lasix Injection -) 40 mg IVPUSH DAILY CHONG Lisinopril (Prinivil) 2.5 mg PO DAILY CHONG Ondansetron HCl (Zofran Injection) 4 mg IVPUSH Q6H PRN PRN Reason: NAUSEA - Objective Vital Signs: Vital Signs Temperature 36.6 C 10/05/18 02:29 Pulse Rate 77 10/05/18 02:29 Respiratory Rate 20 10/05/18 02:29 Blood Pressure 126/96 10/05/18 02:29 O2 Sat by Pulse Oximetry (%) 100 10/05/18 02:29 Constitutional: Yes: Well Nourished, Anxious Cardiovascular: Yes: Tachycardia. No: Gallop, Murmur, Rub Respiratory: Yes: Regular, CTA Bilaterally. No: Rales, Rhonchi, Wheezes Gastrointestinal: Yes: Normal Bowel Sounds, Soft. No: Distention, Tenderness Extremities: Yes: WNL Edema: No Labs: CBC, BMP 10/05/18 05:25 10/05/18 05:25 Problem List - Problems (1) CHF (congestive heart failure) Code(s): I50.9 - HEART FAILURE, UNSPECIFIED (2) COPD exacerbation Code(s): J44.1 - CHRONIC OBSTRUCTIVE PULMONARY DISEASE W (ACUTE) EXACERBATION Assessment/Plan -cardiac enzymes x3 negative -cardiology following -ECHO ordered and pending -now with sinus tachycardia and appears nervous, ? if possible drug use -will check urine tox screen, because if cocaine positive cannot use beta blockers unless approved by cardiology -continue lasix and lisinopril -follow up with cardiology
--- NOTE | 2018-10-05 09:00 | PN ---
Progress Note, Physician Chief Complaint: seen and examined in ER Sitting up Feeling better Denies CP or SOB at this time. History of Present Illness: echo pending - Current Medication List Current Medications: Active Medications Acetaminophen (Tylenol -) 650 mg PO Q4H PRN PRN Reason: FEVER Last Admin: 10/05/18 02:28 Dose: 650 mg Furosemide (Lasix Injection -) 40 mg IVPUSH DAILY CHONG Lisinopril (Prinivil) 2.5 mg PO DAILY CHONG Ondansetron HCl (Zofran Injection) 4 mg IVPUSH Q6H PRN PRN Reason: NAUSEA - Objective Vital Signs: Vital Signs Temperature 97.8 F 10/05/18 02:29 Pulse Rate 77 10/05/18 02:29 Respiratory Rate 20 10/05/18 02:29 Blood Pressure 126/96 10/05/18 02:29 O2 Sat by Pulse Oximetry (%) 100 10/05/18 02:29 Constitutional: Yes: No Distress Cardiovascular: Yes: Regular Rate and Rhythm Respiratory: Yes: CTA Bilaterally Gastrointestinal: Yes: Soft Edema: No Neurological: Yes: Alert, Oriented Labs: CBC, BMP 10/05/18 05:25 10/05/18 05:25 - ....Imaging EKG: Image Reviewed Assessment/Plan Assessment/Plan EKG sinus tach, PVCs IMP: Dyspnea, CTA chest no PE, main PA mildly dilated, probable cardiomegaly, very small pericardial effusion, interstitial pulm vascular congestion mild Acute CHF exac, pulm HTN: - check echo - continue IV lasix - monitor daily weights, Cr, lytes HTN - cont lisinopril HLD - not on statin, check lipids
[2018-10-05 09:41] LABS: COCAINE, UR NEGATIVE ng/ml (CUTOFF=300); METHADONE, UR NEGATIVE ng/ml (CUTOFF=300); OPIATES, URI NEGATIVE ng/ml (CUTOFF=300); PHENCYCLIDINE,URINE NEGATIVE ng/ml (CUTOFF=25); URINE AMPHETAMINES NEGATIVE ng/ml (CUTOFF=500); URINE BARBITURATES NEGATIVE ng/ml (CUTOFF=200); URINE BENZODIAZEPINES NEGATIVE ng/ml (CUTOFF=200)
[2018-10-05] MEDS ORDERED: FUROSEMIDE 40 MG/4 ML INJECTABLE VIAL ONE (09:54)
[2018-10-05] MEDS ORDERED: LISINOPRIL 5 MG TABLET (FP) ONE (09:55)
[2018-10-05] MEDS: LISINOPRIL 5 MG TABLET (FP) PO SCH (09:57)
[2018-10-05] MEDS: FUROSEMIDE 40 MG/4 ML INJECTABLE VIAL IVPUSH SCH (09:57)
--- NOTE | 2018-10-05 12:47 | ECHO ---
Name: BINDU ADAMS Exam:Adult Echocardiogram Study Date: 10/05/2018 11:19 AM Age: 43 yrs Reason For Study: CHF Height: 66 in Weight: 175 lb BSA: 1.9 m2 MMode/2D Measurements & Calculations IVSd: 0.91 cm Ao root diam: 3.0 cm LVIDd: 6.1 cm LA dimension: 4.5 cm LVIDs: 5.5 cm LVPWd: 0.90 cm EDV(Teich): 184.9 ml LVOT diam: 2.0 cm ESV(Teich): 145.1 ml Doppler Measurements & Calculations MV E max jamison: 70.6 cm/sec Ao V2 max: 92.2 cm/sec MV A max jamison: 45.4 cm/sec Ao max P.4 mmHg MV E/A: 1.6 Ao V2 mean: 63.8 cm/sec MV dec time: 0.12 sec Ao mean P.0 mmHg Ao V2 VTI: 14.4 cm HIRAL(I,D): 2.8 cm2 HIRAL(V,D): 2.1 cm2 LV V1 max P.6 mmHg MR max jamison: 409.4 cm/sec LV V1 mean P.85 mmHg MR max P.1 mmHg LV V1 max: 63.2 cm/sec LV V1 mean: 43.1 cm/sec LV V1 VTI: 12.9 cm SV(LVOT): 40.4 ml TR max jamison: 245.2 cm/sec TR max P.6 mmHg PI end-d jamison: 129.2 cm/sec Med Peak E' Jamison: 7.1 cm/sec Med E/e': 10.0 Lat Peak E' Jamison: 5.9 cm/sec Lat E/e': 12.0 Left Ventricle The left ventricle is mildly dilated. Left ventricular systolic function is severely reduced. Ejectio n Fraction = 20-25%. There is severe global hypokinesis of the left ventricle. Right Ventricle The right ventricle is grossly normal size. The right ventricular systolic function is grossly normal . Atria The left atrium is moderately dilated. The right atrium is moderately dilated. Mitral Valve The mitral valve is grossly normal. There is no mitral valve stenosis. There is severe mitral regurgi tation. Tricuspid Valve The tricuspid valve is not well visualized, but is grossly normal. There is severe tricuspid regurgit ation. Right ventricular systolic pressure is elevated at 30-40mmHg. Aortic Valve The aortic valve opens well. No hemodynamically significant valvular aortic stenosis. No aortic regur gitation is present. Pulmonic Valve The pulmonic valve is not well seen, but is grossly normal. There is no pulmonic valvular stenosis. Great Vessels The aortic root is normal size. Pericardium/Pleura Trivial pericardial effusion not hemodynamically significant. Interpretation Summary The left ventricle is mildly dilated. There is severe global hypokinesis of the left ventricle. Left ventricular systolic function is severely reduced. Ejection Fraction = 20-25%. The left atrium is moderately dilated. The right atrium is moderately dilated. There is severe mitral regurgitation. There is severe tricuspid regurgitation. Right ventricular systolic pressure is elevated at 30-40mmHg. Trivial pericardial effusion not hemodynamically significant MD Lopez *Tanner 10/05/2018 12:46 PM
--- NOTE | 2018-10-05 15:40 | EKG ---
Test Reason : Blood Pressure : / mmHG Vent. Rate : 117 BPM Atrial Rate : 117 BPM P-R Int : 162 ms QRS Dur : 084 ms QT Int : 286 ms P-R-T Axes : 056 033 051 degrees QTc Int : 398 ms SINUS TACHYCARDIA POSSIBLE LEFT ATRIAL ENLARGEMENT POSSIBLE ANTERIOR INFARCT , AGE UNDETERMINED ABNORMAL ECG Confirmed by QUIN SOTO MD ([id number]) on 10/05/2018 3:40:32 PM Referred By: Confirmed By:QUIN SOTO MD
[2018-10-06] MEDS: LISINOPRIL 5 MG TABLET (FP) PO SCH (09:03)
[2018-10-06] MEDS: FUROSEMIDE 40 MG/4 ML INJECTABLE VIAL IVPUSH SCH (09:03)
--- NOTE | 2018-10-06 09:24 | PN ---
Progress Note, Physician Chief Complaint: No distress TELE: Sinus tach, frequent single PVCs - Current Medication List Current Medications: Active Medications Acetaminophen (Tylenol -) 650 mg PO Q4H PRN PRN Reason: FEVER Last Admin: 10/05/18 02:28 Dose: 650 mg Furosemide (Lasix Injection -) 40 mg IVPUSH DAILY [facility] Last Admin: 10/06/18 09:03 Dose: 40 mg Lisinopril (Prinivil) 2.5 mg PO DAILY [facility] Last Admin: 10/06/18 09:03 Dose: 2.5 mg Ondansetron HCl (Zofran Injection) 4 mg IVPUSH Q6H PRN PRN Reason: NAUSEA - Objective Vital Signs: Vital Signs Temperature 97.6 F 10/06/18 06:00 Pulse Rate 110 H 10/06/18 06:00 Respiratory Rate 18 10/06/18 06:00 Blood Pressure 108/80 10/06/18 06:00 O2 Sat by Pulse Oximetry (%) 100 10/05/18 21:00 Constitutional: Yes: No Distress Cardiovascular: Yes: Regular Rate and Rhythm Respiratory: Yes: CTA Bilaterally Gastrointestinal: Yes: Soft Edema: No Neurological: Yes: Alert, Oriented ...Motor Strength: WNL Labs: CBC, BMP 10/05/18 05:25 10/05/18 05:25 Laboratory Tests 10/05/18 10/05/18 10/05/18 05:25 05:25 08:35 WBC 5.6 Hgb 11.3 Plt Count 172 Sodium 138 Potassium 3.7 Creatinine 0.8 TSH 3.95 H Opiates Screen Negative Methadone Screen Negative Barbiturate Screen Negative Phencyclidine Screen Negative Ur Amphetamines Screen Negative MDMA (Ecstasy) Screen Negative Benzodiazepines Screen Negative Cocaine Screen Negative U Marijuana (THC) Screen Positive A* HIV 1&2 Ag/Ab, 4th Gen 10/05/18 15:00 WBC Hgb Plt Count Sodium Potassium Creatinine TSH Opiates Screen Methadone Screen Barbiturate Screen Phencyclidine Screen Ur Amphetamines Screen MDMA (Ecstasy) Screen Benzodiazepines Screen Cocaine Screen U Marijuana (THC) Screen HIV 1&2 Ag/Ab, 4th Gen Pending - ....Imaging EKG: Image Reviewed Other: Other (Echo w/ LV dilatation, severe LV dysfx, severe MR and TR) Assessment/Plan IMP: 1. Acute systolic CHF 2. Severe LV dysfx 3. Severe MR/TR REC: 1. Cardiomyopathy w/u: -check HIV, TSH is elevated, Utox neg for cocaine. + ETOH (3 beers per day); no early fam hx CHF -Will need ischemic evaluation, which will likely need to be done as outpt as she has noone to care for daughter on Monday 2. Acute CHF: -Improved -Started on NIKOLAS -Will start low dose BB today -Cont tele 3. VPCS: -single -Keep electrolytes WNL -Tele
--- NOTE | 2018-10-06 10:44 | PN ---
Progress Note, Physician Chief Complaint: Ms Sears says she feels fine. Denies cp, sob, n/v. - Current Medication List Current Medications: Active Medications Acetaminophen (Tylenol -) 650 mg PO Q4H PRN PRN Reason: FEVER Last Admin: 10/05/18 02:28 Dose: 650 mg Furosemide (Lasix Injection -) 40 mg IVPUSH DAILY [facility] Last Admin: 10/06/18 09:03 Dose: 40 mg Lisinopril (Prinivil) 2.5 mg PO DAILY [facility] Last Admin: 10/06/18 09:03 Dose: 2.5 mg Magnesium Oxide (Mag-Ox -) 400 mg PO BID [facility] Metoprolol Succinate (Toprol Xl -) 12.5 mg PO DAILY [facility] Ondansetron HCl (Zofran Injection) 4 mg IVPUSH Q6H PRN PRN Reason: NAUSEA Potassium Chloride (K-Dur -) 20 meq PO DAILY [facility] - Objective Vital Signs: Vital Signs Temperature 36.4 C 10/06/18 06:00 Pulse Rate 110 H 10/06/18 06:00 Respiratory Rate 18 10/06/18 06:00 Blood Pressure 108/80 10/06/18 06:00 O2 Sat by Pulse Oximetry (%) 100 10/05/18 21:00 Constitutional: Yes: Well Nourished, No Distress, Calm Cardiovascular: Yes: Regular Rate and Rhythm. No: Gallop, Murmur, Rub Respiratory: Yes: Regular, CTA Bilaterally. No: Rales, Rhonchi, Wheezes Gastrointestinal: Yes: Normal Bowel Sounds, Soft. No: Distention, Tenderness Extremities: Yes: WNL Edema: No Labs: CBC, BMP 10/05/18 05:25 10/05/18 05:25 Problem List - Problems (1) CHF (congestive heart failure) Code(s): I50.9 - HEART FAILURE, UNSPECIFIED (2) COPD exacerbation Code(s): J44.1 - CHRONIC OBSTRUCTIVE PULMONARY DISEASE W (ACUTE) EXACERBATION Assessment/Plan -case d/w cardiology -awaiting HIV results -continue lasix and lisinopril -toprol xl added -plan to change to oral lasix tomorrow -possible discharge tomorrow
[2018-10-06] MEDS: metoPROLOL SUCCINATE 25 MG TAB.SR.24H (FP) PO SCH (12:07)
[2018-10-06] MEDS: MAGNESIUM OXIDE 400 MG TABLET (FP) PO SCH ×2 (12:08→21:14)
[2018-10-06] MEDS: POTASSIUM CHLORIDE TABS 20 MEQ TABLET.ER (FP) PO SCH (12:08)
[2018-10-07 07:35] LABS: BASO % 0.4 % (0-2.0); EOS % 2.2 % (0-4.5); HEMATOCRIT 35.9 % (32.4-45.2); HEMOGLOBIN 11.6 GM/dL (10.7-15.3); LYMPH % 47.8 % (8-40); MCH 26.7 pg (25.7-33.7); MCHC 32.3 g/dl (32.0-36.0); MEAN CELL VOLUME 82.7 fl (80-96); MEAN PLT VOLUME 9.3 fl (7.5-11.1); MONO % 10.6 % (3.8-10.2); PLATELET COUNT 184 K/MM3 (134-434); RBC 4.35 M/mm3 (3.60-5.2); RDW 16.7 % (11.6-15.6); WHITE BLOOD COUNT 5.8 K/mm3 (4.0-10.0)
[2018-10-07 08:27] LABS: BLOOD UREA NITROGEN 14.5 mg/dL (7-18); CALCIUM 8.6 mg/dL (8.5-10.1); CREATININE 0.8 mg/dL (0.55-1.3); MAGNESIUM 2.2 mg/dL (1.8-2.4); PHOSPHOROUS 3.8 mg/dL (2.5-4.9); POTASSIUM 4.1 mmol/L (3.5-5.1)
[2018-10-07] MEDS: FUROSEMIDE 40 MG/4 ML INJECTABLE VIAL IVPUSH SCH (09:00)
[2018-10-07] MEDS: MAGNESIUM OXIDE 400 MG TABLET (FP) PO SCH (09:00)
[2018-10-07] MEDS: POTASSIUM CHLORIDE TABS 20 MEQ TABLET.ER (FP) PO SCH (09:00)
[2018-10-07] MEDS: metoPROLOL SUCCINATE 25 MG TAB.SR.24H (FP) PO SCH (09:02)
[2018-10-07] MEDS: LISINOPRIL 5 MG TABLET (FP) PO SCH (09:02)
--- NOTE | 2018-10-07 09:56 | PN ---
Progress Note, Physician Chief Complaint: seen and examined Denies JEFE CALDERON TELE: Sinus, mild sinus tach. Rare single VPCs. Rare couplets, no sustained arrhythmias or V-ectopy - Current Medication List Current Medications: Active Medications Acetaminophen (Tylenol -) 650 mg PO Q4H PRN PRN Reason: FEVER Last Admin: 10/05/18 02:28 Dose: 650 mg Furosemide (Lasix Injection -) 40 mg IVPUSH DAILY [facility] Last Admin: 10/07/18 09:00 Dose: 40 mg Lisinopril (Prinivil) 2.5 mg PO DAILY [facility] Last Admin: 10/07/18 09:02 Dose: 2.5 mg Magnesium Oxide (Mag-Ox -) 400 mg PO BID [facility] Last Admin: 10/07/18 09:00 Dose: 400 mg Metoprolol Succinate (Toprol Xl -) 12.5 mg PO DAILY [facility] Last Admin: 10/07/18 09:02 Dose: 12.5 mg Ondansetron HCl (Zofran Injection) 4 mg IVPUSH Q6H PRN PRN Reason: NAUSEA Potassium Chloride (K-Dur -) 20 meq PO DAILY [facility] Last Admin: 10/07/18 09:00 Dose: 20 meq - Objective Vital Signs: Vital Signs Temperature 97.8 F 10/07/18 06:00 Pulse Rate 97 H 10/07/18 06:00 Respiratory Rate 20 10/07/18 06:00 Blood Pressure 102/57 L 10/07/18 06:00 O2 Sat by Pulse Oximetry (%) 99 10/06/18 21:00 Constitutional: Yes: No Distress, Calm Eyes: Yes: Conjunctiva Clear Cardiovascular: Yes: Regular Rate and Rhythm Respiratory: Yes: CTA Bilaterally Gastrointestinal: Yes: Soft, Abdomen, Obese Edema: No Neurological: Yes: Alert, Oriented ...Motor Strength: WNL Labs: CBC, BMP 10/07/18 06:40 10/07/18 06:40 Laboratory Tests 10/04/18 10/04/18 10/05/18 11:09 19:25 05:25 WBC Hgb Plt Count Sodium Potassium Creatinine Magnesium Troponin I 0.04 0.04 0.05 Total Protein 6.0 L Albumin 3.4 HIV 1&2 Ag/Ab, 4th Gen 10/05/18 10/07/18 10/07/18 15:00 06:40 06:40 WBC 5.8 Hgb 11.6 Plt Count 184 Sodium 139 Potassium 4.1 Creatinine 0.8 Magnesium 2.2 Troponin I Total Protein Albumin HIV 1&2 Ag/Ab, 4th Gen Non reactive - ....Imaging EKG: Image Reviewed Assessment/Plan IMP: 1. Acute systolic CHF 2. Severe LV dysfx 3. Severe MR/TR REC: 1. Cardiomyopathy w/u: -HIV negative; TSH is elevated, Utox neg for cocaine. + ETOH (3 beers per day); no early fam hx CHF -Will need ischemic evaluation, which will likely need to be done as outpt as she has noone to care for daughter on Monday and she wants to go home, can no longer stay in hospital. -Patient advised to stop all ETOH consumption -Advised close outpt cardio f/u in 1 week to titrate meds, repeat labs and proceed w/ outpt ischemic w/u 2. Acute CHF: -Improved -Started on NIKOLAS and low dose Toprol tolerated well. Would also continue Lasix 40mg PO daily with K+ suppl (20Meq daily) 3. VPCS: -single. No sustained V ectopy. -Keep electrolytes WNL 4. MR/TR: -Likely secondary to LV dysfx (functional) and may improve with optimization of volume status and medical therapy for LV dysfx -Would repeat echo after 4-6 weeks med Rx.
--- NOTE | 2018-10-07 10:21 | DS ---
Physical Examination Vital Signs: Vital Signs Temperature 36.6 C 10/07/18 06:00 Pulse Rate 97 H 10/07/18 06:00 Respiratory Rate 20 10/07/18 06:00 Blood Pressure 102/57 L 10/07/18 06:00 O2 Sat by Pulse Oximetry (%) 99 10/06/18 21:00 Constitutional: Yes: Well Nourished, No Distress, Calm Cardiovascular: Yes: Regular Rate and Rhythm. No: Gallop, Murmur, Rub Respiratory: Yes: Regular, CTA Bilaterally. No: Rales, Rhonchi, Wheezes Gastrointestinal: Yes: Normal Bowel Sounds, Soft. No: Distention, Tenderness Extremities: Yes: WNL Edema: No Labs: CBC, BMP 10/07/18 06:40 10/07/18 06:40 Discharge Summary Reason For Visit: TACHYCARDIA,COPD,HYPERVOLEMIA Current Active Problems CHF (congestive heart failure) (Acute) COPD exacerbation (Acute) Hypervolemia (Acute) Tachycardia (Acute) Hospital Course: (1) CHF (congestive heart failure) Code(s): I50.9 - HEART FAILURE, UNSPECIFIED (2) COPD exacerbation Code(s): J44.1 - CHRONIC OBSTRUCTIVE PULMONARY DISEASE W (ACUTE) EXACERBATION Ms Sears is a pleasant 43 year old female who came in with shortness of breath and found to have new onset acute systolic CHF exacerbation secondary to cardiomyopathy. She was admitted to telemetry and diuresed with IV lasix. She was also placed on low dose lisinopril and toprol xl. She tolerated the treatment well and states that she is feeling much better, she says that she is at baseline. Case d/w cardiology and she is stable for discharge home. She was instructed to stop smoking and have close follow up with her PCP and cardiology. She is safe for discharge home today. 34 minutes spent in preparation of this discharge. Condition: Good - Instructions Diet, Activity, Other Instructions: Please stop smoking as this will accelerate your condition. Low salt/low fat diet. Resume previous activity. Referrals: John Hart MD [Staff Physician] - 1 Week Parag Choudhury MD [Primary Care Provider] - 1 Week Disposition: HOME - Home Medications Comprehensive Discharge Medication List: Ambulatory Orders Albuterol Sulfate Inhaler - [Ventolin HFA Inhaler -] 1 - 2 inh PO Q4H PRN Cetirizine HCl [Zyrtec -] 10 mg PO DAILY 10/04/18 Fluticasone Propionate [Flovent Diskus] 50 mcg IH PRN 10/04/18 Furosemide 40 mg PO DAILY #30 tablet 10/07/18 Lisinopril [Prinivil] 2.5 mg PO DAILY #30 tablet 10/07/18 Metoprolol Succinate [Toprol XL -] 12.5 mg PO DAILY #30 tab.sr.24h 10/07/18 Potassium Chloride [K-Dur -] 20 meq PO DAILY #30 tablet.er 10/07/18
[2018-10-07 11:44] VITALS: BP 108/72; PULSE 112; TEMP 98.1
== END 2018-10-07 11:57 | disposition home or self-care (01) | DRG 194 ==
LOC: JER 10:07 → JERBED 11:54 → J4S 10-05 16:28
PROVIDERS: ADMIT Internal Medicine; ATTEND Internal Medicine
DX: I11.0 Hypertensive heart disease with heart failure (principal); I50.21 Acute systolic (congestive) heart failure; E66.01 Morbid (severe) obesity due to excess calories; J44.1 Chronic obstructive pulmonary disease with (acute) exacerbation; I27.20 Pulmonary hypertension, unspecified; I36.1 Nonrheumatic tricuspid (valve) insufficiency; E78.5 Hyperlipidemia, unspecified; I42.8 Other cardiomyopathies; R00.0 Tachycardia, unspecified; I34.0 Nonrheumatic mitral (valve) insufficiency; Z68.35 Body mass index [BMI] 35.0-35.9, adult
CPT/HCPCS: 36415; 71045-TC-FY; 80048; 80053; 80061; 80307; 82550; 82553; 83721; 83735; 83880; 84100; 84436; 84443; 84484; 85025; 87389; 93005; 93010; 93306-TC; 99283-25

== ENCOUNTER 2020-08-27 06:58 | Emergency (ER) | payer OTHER ==
[2020-08-27 07:43] VITALS: BMI 32.3
[2020-08-27] MEDS ORDERED: ACETAMINOPHEN 1000 MG/100 ML VIAL (NON FORMULARY) IVPB ONE (07:50)
[2020-08-27] MEDS ORDERED: ACETAMINOPHEN INJECTION 100 ML IVPB ONE (08:10)
[2020-08-27 08:19] LABS: BASO % 0.9 % (0-2.0); EOS % 0.8 % (0-4.5); HEMATOCRIT 38.4 % (32.4-45.2); HEMOGLOBIN 12.7 GM/dL (10.7-15.3); LYMPH % 30.1 % (8-40); MCH 28.8 pg (25.7-33.7); MCHC 33.2 g/dl (32.0-36.0); MEAN CELL VOLUME 86.8 fl (80-96); MEAN PLT VOLUME 10.2 fl (7.5-11.1); MONO % 6.8 % (3.8-10.2); NEUT % 61.4 % (42.8-82.8); PLATELET COUNT 231 K/MM3 (134-434); RBC 4.42 M/mm3 (3.60-5.2); RDW 14.3 % (11.6-15.6)
[2020-08-27 08:49] LABS: CALCIUM 9.1 mg/dL (8.5-10.1)
[2020-08-27 08:50] LABS: BLOOD UREA NITROGEN 14.6 mg/dL (7-18)
[2020-08-27 08:53] LABS: CREATININE 0.7 mg/dL (0.55-1.3)
[2020-08-27 08:55] LABS: EPI CELLS 17 /uL (0-25.1); HYALINE CASTS 1 /uL (0-3.1); URINE APPEARANCE CLEAR; URINE BACTERIA 737 /uL (0-1359); URINE BILIRUBIN NEGATIVE (NEGATIVE); URINE COLOR YELLOW; URINE GLUCOSE (UA) NEGATIVE (NEGATIVE); URINE KETONE NEGATIVE (NEGATIVE); URINE LEUK ESTERASE NEGATIVE (NEGATIVE); URINE NITRITE NEGATIVE (NEGATIVE); URINE PROTEIN 1+ (NEGATIVE); URINE RBC 1155 /uL (0-23.9); URINE UROBILINOGEN 0.2 mg/dL (0.2-1.0); URINE WBC 13 /uL (0-25.8)
[2020-08-27] MEDS ORDERED: ALBUTEROL SO4 2.5/IPRATROPIUM 0.5 INH SOL 3 ML VIAL.NEB. NEB ONE (09:52)
[2020-08-27] MEDS: ALBUTEROL SO4 2.5/IPRATROPIUM 0.5 INH SOL 3 ML VIAL.NEB. NEB SCH ×2 (10:03→10:51)
[2020-08-27 10:30] VITALS: BP 113/67; PULSE 101; TEMP 98.3
[2020-08-27] MEDS ORDERED: IBUPROFEN 600 MG TABLET (FP) PO ONE ×2 (11:29→11:41)
== END 2020-08-27 11:54 | disposition home or self-care (01) ==
LOC: JER 06:58
PROC: 3E0F7GC Introduction of Other Therapeutic Substance into Respiratory Tract, Via Natural or Artificial Opening (ICD-10-PCS; principal; 2020-08-27)
PROC: 3E033NZ Introduction of Analgesics, Hypnotics, Sedatives into Peripheral Vein, Percutaneous Approach (ICD-10-PCS; 2020-08-27)
DX: R10.9 Unspecified abdominal pain (principal)
CPT/HCPCS: 36415; 71046-TC-FY; 74176-TC; 80048; 81003; 83690; 84484; 84703; 85025; 87086; 93005; 93010; 99285-25; J0131

== ENCOUNTER 2022-01-03 10:47 | Emergency (ER) | payer OTHER ==
[2022-01-03 11:05] VITALS: BP 110/77; RESP 17; TEMP 98.2; BMI 28.4
[2022-01-03 14:31] LABS: BASO % 0.9 % (0-2.0); EOS % 0.7 % (0-4.5); HEMATOCRIT 35.3 % (32.4-45.2); MCH 24.4 pg (25.7-33.7); MCHC 31.3 g/dl (32.0-36.0); MEAN CELL VOLUME 78.1 fl (80-96); MEAN PLT VOLUME 9.1 fl (7.5-11.1); NEUT % 59.4 % (42.8-82.8); PLATELET COUNT 137 10^3/uL (134-434); RBC 4.52 M/mm3 (3.60-5.2); RDW 19.5 % (11.6-15.6); WHITE BLOOD COUNT 4.1 K/mm3 (4.0-10.0)
[2022-01-03 14:48] LABS: ALBUMIN 3.5 g/dl (3.4-5.0); BLOOD UREA NITROGEN 13.6 mg/dL (7-18); CALCIUM 9.1 mg/dL (8.5-10.1)
[2022-01-03 14:52] LABS: CREATININE 0.8 mg/dL (0.55-1.3)
[2022-01-03 14:53] LABS: BILIRUBIN,TOTAL 2.1 mg/dL (0.2-1)
[2022-01-03 14:54] LABS: TOT PROT 6.4 g/dl (6.4-8.2)
[2022-01-03 14:56] LABS: N-TERMINAL BNP 1324.7 pg/ml (5-125)
[2022-01-03 18:54] VITALS: PULSE 71
== END 2022-01-03 19:00 | disposition home or self-care (01) ==
LOC: JER 10:47
DX: R42 Dizziness and giddiness (principal); R16.0 Hepatomegaly, not elsewhere classified; E80.7 Disorder of bilirubin metabolism, unspecified
CPT/HCPCS: 36415; 71046-TC-FY; 76705-TC; 80053; 83880; 84484; 85025; 93005; 93010; 99285-25